=== PATIENT | female | born 1985 | race Caucasian/White ===

== ENCOUNTER → 2018-06-24 | Outpatient (CLI) | payer OTHER ==
[2018-06-24 18:27] LABS: PROTHROMBIN TIME 13.3 SECONDS (12.1-14.4)
[2018-06-24 18:28] LABS: PARTIAL THROMBOPLASTIN TIME 30.7 SECONDS (25.4-37.6)
[2018-06-28 00:07] LABS: ANCA-ATYPICAL <1:20 titer (Neg:<1:20); ANTI DOUBLE STRAND-DNA AB 10 IU/mL (0-9); ANTINUCLEAR ANTIBODIES DIRECT Positive (Negative); CYTOPLASMIC NEUTROP AB ANCA-C <1:20 titer (Neg:<1:20); PERINUCLEAR AB ANCA-P <1:20 titer (Neg:<1:20); RNP ANTIBODIES 0.2 AI (0.0-0.9); SJOGREN'S ANTI SS-A <0.2 AI (0.0-0.9); SJOGREN'S ANTI SS-B <0.2 AI (0.0-0.9); SMITH ANTIBODIES <0.2 AI (0.0-0.9)
[2018-06-29 16:40] LABS: ASPERGILLUS FLAVUS ABY Negative (Neg:<1:1); ASPERGILLUS FUMIGATUS ABY Negative (Neg:<1:1); ASPERGILLUS NIGER ABY Negative (Neg:<1:1); BLASTOMYCES ANTIBODY LEVEL Negative (Neg:<1:1); CRYPTOCOCCUS ANTIGEN SER Negative (Negative); CYCLIC CITRULLINATED PEPTIDE 7 units (0-19); HISTOPLASMOSIS ANTIBODY Negative (Neg:<1:1)
== END ==
LOC: M SMT 14:36
PROVIDERS: ATTEND Internal Medicine Pulmonary Disease
DX: R21 Rash and other nonspecific skin eruption (principal)

== ENCOUNTER → 2018-06-27 | Outpatient (CLI) | payer OTHER ==
--- NOTE | 2018-06-27 21:14 | REP ---
Clinical: Left wrist Trauma. Technique: AP, lateral, oblique views of the left wrist. Findings: The carpal bones, surrounding osseous structures, soft tissues, and joint spaces are normal. There is no evidence for acute fracture or dislocation. No subcutaneous emphysema or radiodense foreign body. Impression: Normal wrist series. No acute fracture or dislocation Electronically Signed by Deyvi Rodas MD 06/27/2018 09:05 P
--- NOTE | 2018-06-27 21:15 | REP ---
Clinical: Left wrist Trauma. Technique: AP, lateral, bilateral oblique views of the left hand . Findings: No acute fracture or dislocation. Skeletal structures, joint spaces, and surrounding soft tissues are normal. No subcutaneous emphysema or radiodense foreign body. Impression: No acute fracture or dislocation Electronically Signed by Deyvi Rodas MD 06/27/2018 09:06 P
== END ==
LOC: M RAD 20:28
PROVIDERS: ATTEND Physician Assistant Medical
DX: S69.92XA Unspecified injury of left wrist, hand and finger(s), initial encounter (principal); X58.XXXA Exposure to other specified factors, initial encounter; Y92.89 Other specified places as the place of occurrence of the external cause

== ENCOUNTER → 2018-07-02 | Outpatient (CLI) | payer OTHER ==
--- NOTE | 2018-07-02 14:04 | REP ---
Chest two views HISTORY: Cough Comparison: None Calcified granuloma are present in the right upper lobe and in the right and left jenn. The heart is normal in size. The pulmonary vasculature is normal in appearance. The bony structure is intact. IMPRESSION: No acute disease. Electronically Signed by Ilan Gregorio MD 07/02/2018 01:57 P
== END ==
LOC: M RAD 13:13
PROVIDERS: ATTEND Internal Medicine Pulmonary Disease
DX: R05 Cough (principal)

== ENCOUNTER 2018-07-15 20:45 | Emergency (ER) | payer OTHER ==
[~2018-07-15] VITALS: Ht 170.2 cm; Wt 105.0 kg
[2018-07-15] MEDS ORDERED: SYNT25TA PO (20:50)
[2018-07-15] MEDS ORDERED: VITA500045 PO (20:50)
[2018-07-15] MEDS ORDERED: ADVA115A INH (20:50)
[2018-07-15] MEDS ORDERED: ADDE10CA3 PO (20:50)
[2018-07-15] MEDS ORDERED: ACETAMINOPHEN 500 MG TAB PO ONE (23:00)
[2018-07-15 23:39] LABS: BASO # 0.1 10^3/uL (0.0-0.2); BASO % 1.2 % (0.0-1.0); EOS # 0.2 10^3/uL (0.0-0.50); EOS % 3.3 % (0.0-3.0); HEMOGLOBIN 12.8 g/dl (12.0-15.5); LYMPH # 1.8 10^3/uL (1.5-4.5); LYMPH % 27.5 % (24.0-44.0); MEAN CORPUSCULAR HEMOGLOBIN 27.2 pg (27.0-33.0); MEAN CORPUSCULAR VOLUME 85.1 fl (80.0-96.0); MONO # 0.3 10^3/uL (0.0-0.8); NEUTROPHILS # 4.2 10^3/uL (1.8-7.7); NEUTROPHILS % 62.8 % (36.0-66.0); PLATELET COUNT, AUTOMATED 245 10^3/uL (150-450); WHITE BLOOD COUNT 6.6 10^3/uL (4.0-10.0)
[2018-07-16 00:03] LABS: BLOOD UREA NITROGEN 11 MG/DL (7-18); CALCIUM LEVEL 9.1 MG/DL (8.5-10.1); CARBON DIOXIDE LEVEL 28 MEQ/L (21-32); CHLORIDE LEVEL 107 MEQ/L (98-107); CREATININE FOR GFR 0.83 MG/DL (0.55-1.30); GLOMERULAR FILTRATION RATE > 60.0 (>60); GLUCOSE, FASTING 91 MG/DL (70-100); SODIUM LEVEL 140 MEQ/L (136-145)
[2018-07-16 00:13] LABS: INFLUENZA A AMPLIFICATION NEGATIVE (NEGATIVE); INFLUENZA B AMPLIFICATION NEGATIVE (NEGATIVE)
[2018-07-16] MEDS ORDERED: ISOVUE-370 76% 100ML VIAL (Q9967) As Ordered ONE (00:13)
[2018-07-16] MEDS ORDERED: ONDANSETRON 4MG/2ML VIAL (J2405) IV ONE (00:15)
[2018-07-16] MEDS ORDERED: KETOROLAC 30 MG/ML VIAL (J1885) IV ONE (00:15)
[2018-07-16] MEDS ORDERED: guaiFENesin SYRUP 200 MG/10 ML UDC PO ONE (00:15)
--- NOTE | 2018-07-16 01:14 | REPVR ---
EXAM: CT Angiography Chest With Contrast EXAM DATE/TIME: 07/16/2018 12:08 AM CLINICAL HISTORY: 32 years old, female; Pain; Chest pain; Right-sided chest pain; Additional info: Right-sided chest pain, fever TECHNIQUE: Imaging protocol: Axial computed tomographic angiography images of the chest with intravenous contrast using CT angiography protocol. Coronal and sagittal reformatted images were created and reviewed. 3D rendering: MIP reconstructed images were created and reviewed. Radiation optimization: All CT scans at this facility use at least one of these dose optimization techniques: automated exposure control; mA and/or kV adjustment per patient size (includes targeted exams where dose is matched to clinical indication); or iterative reconstruction. Contrast material: iso Contrast volume: 75 ml Contrast route: ac COMPARISON: CR Chest, 2 view PA, Lat 07/15/2018 10:37 PM FINDINGS: Pulmonary arteries: Normal. No pulmonary emboli. Aorta: Normal. No aortic aneurysm. No aortic dissection. Lungs: No consolidation. No masses. Multiple calcified granulomas in the lungs. Pleural space: Normal. No pneumothorax. No pleural effusion. Heart: Normal. No cardiomegaly. No pericardial effusion. Spleen: Multiple calcified granulomas in the spleen. Lymph nodes: Multiple calcified mediastinal nodes. No lymphadenopathy. Bones/joints: Unremarkable. No acute fracture. Soft tissues: Unremarkable. IMPRESSION: 1. Negative for pulmonary embolism. 2. No acute findings. 3. Prior granulomatous disease. Electronically signed by: Miladys Rodriguez On 07/16/2018 01:14:00 AM
[2018-07-16] MEDS ORDERED: KETO10TAB PO (01:36)
[2018-07-16 01:52] VITALS: BP 109/61
--- NOTE | 2018-07-16 08:12 | REP ---
PA and lateral chest: Comparisons are 07/02/[address] of 07/16/2018. There are multiple small nodular densities throughout the lung loza bilaterally. The comparison CTs are calcified granulomas. They are unchanged from 07/02/2018. The lung loza otherwise clear. Cardiac size is normal. The jenn, mediastinum, skeletal structures are. Impression: No acute cardiopulmonary findings. Multiple small calcified granulomas bilaterally. Electronically Signed by Ahmet Camacho MD 07/16/2018 08:03 A
== END 2018-07-16 01:51 | disposition home or self-care (01) ==
LOC: M ED 20:45
DX: R07.89 Other chest pain (principal); E03.9 Hypothyroidism, unspecified
CPT/HCPCS: 71046; 71275; 80048; 85025; 85379; 87502; 96361; 96374; 96375; 99284; J1885; J2405; Q9967

== ENCOUNTER 2018-07-23 15:57 | Emergency (ER) | payer OTHER ==
[~2018-07-23] VITALS: Ht 170.2 cm; Wt 104.5 kg
[~2018-07-23 15:57] MED LIST: ADDE10CA3 PO; ADVA115A INH; KETO10TAB PO; SYNT25TA PO; VITA500045 PO
[2018-07-23] MEDS ORDERED: ADV250INH INH (16:07)
[2018-07-23] MEDS ORDERED: methylPREDNISolone INJ 125 MG/2 ML VIAL (J2930) IM ONE (17:45)
[2018-07-23] MEDS ORDERED: KETOROLAC 60 MG/2 ML VIAL (J1885) IM ONE (17:45)
[2018-07-23 18:02] LABS: INFLUENZA A AMPLIFICATION NEGATIVE (NEGATIVE); INFLUENZA B AMPLIFICATION NEGATIVE (NEGATIVE)
[2018-07-23 19:05] LABS: HEMATOCRIT 38.8 % (36.0-47.0); HEMOGLOBIN 12.7 g/dl (12.0-15.5); MEAN CORPUSCULAR HEMOGLOBIN 27.4 pg (27.0-33.0); MEAN CORPUSCULAR HGB CONC 32.7 g/dl (32.0-36.5); MEAN CORPUSCULAR VOLUME 83.6 fl (80.0-96.0); PLATELET COUNT, AUTOMATED 245 10^3/uL (150-450); RED BLOOD COUNT 4.64 10^6/uL (4.00-5.40); WHITE BLOOD COUNT 9.1 10^3/uL (4.0-10.0)
[2018-07-23 19:27] LABS: BLOOD UREA NITROGEN 8 MG/DL (7-18); CALCIUM LEVEL 8.8 MG/DL (8.5-10.1); CARBON DIOXIDE LEVEL 26 MEQ/L (21-32); CHLORIDE LEVEL 108 MEQ/L (98-107); CK-MB VALUE MASS < 1.0 NG/ML (<3.6); CPK CREATINE PHOSPHOKINASE 138 U/L (26-192); CREATININE FOR GFR 0.63 MG/DL (0.55-1.30); GLOMERULAR FILTRATION RATE > 60.0 (>60); GLUCOSE, FASTING 89 MG/DL (70-100); MB/CK RELATIVE INDEX 0.72 (< OR =4); SODIUM LEVEL 141 MEQ/L (136-145); TROPONIN I < 0.02 NG/ML (< 0.10)
[2018-07-23] MEDS ORDERED: FLUTISP (20:00)
[2018-07-23] MEDS ORDERED: PRED20TA PO (20:00)
[2018-07-23 20:08] VITALS: BP 118/60
--- NOTE | 2018-07-23 23:27 | ECGEPIP ---
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
--- NOTE | 2018-07-24 08:07 | REP ---
Chest x-ray: Two views. History: Shortness of breath. Comparison chest x-ray: July 15, 2018. Findings: There are granulomatous calcific residuals in the lungs bilaterally and in the left and right hilus unchanged. Mediastinal granulomatous lymph node calcifications are also noted unchanged. The lungs are well inflated and clear. Pleural angles are sharp. Heart size is normal. Pulmonary vasculature is not increased. Impression: Old granulomatous changes. No active disease. Electronically Signed by Jordan Miller MD 07/24/2018 09:13 A
== END 2018-07-23 20:22 | disposition home or self-care (01) ==
LOC: M ED 15:57
DX: J06.9 Acute upper respiratory infection, unspecified (principal); J45.909 Unspecified asthma, uncomplicated; E03.9 Hypothyroidism, unspecified; Z79.899 Other long term (current) drug therapy; Z79.890 Hormone replacement therapy; Z88.5 Allergy status to narcotic agent; Z88.7 Allergy status to serum and vaccine; Z88.8 Allergy status to other drugs, medicaments and biological substances
CPT/HCPCS: 36415; 71046; 80048; 82550; 82553; 84484; 85027; 87631; 93005; 96372; 99284; J1885; J2930

== ENCOUNTER → 2018-07-24 | Outpatient (CLI) | payer OTHER ==
[~2018-07-24] MED LIST changes: +ADV250INH INH; +BENZ200C70 PO; +FLUTISP; +PRED20TA PO
[2018-07-24 18:15] LABS: C REACTIVE PROTEIN QUANTITATIV 0.95 MG/DL (0.00-0.30)
== END ==
LOC: M SMT 14:14
PROVIDERS: ATTEND Internal Medicine Pulmonary Disease
DX: R09.1 Pleurisy (principal)

== ENCOUNTER 2018-07-26 11:20 | Emergency (ER) | payer OTHER ==
[~2018-07-26] VITALS: Ht 170.2 cm; Wt 104.5 kg
[~2018-07-26 11:20] MED LIST changes: -BENZ200C70 PO
[2018-07-26] MEDS ORDERED: PRED20TA PO (12:08)
[2018-07-26] MEDS ORDERED: ALBUTEROL SULFATE 2.5 MG/0.5 ML INH NEB SOLN INH ONE (12:45)
[2018-07-26] MEDS ORDERED: IPRATROPIUM 0.5MG/ALBUTEROL 2.5MG INH SOL UD 3ML (DUONEB)(J7620) NEB ONE (12:45)
[2018-07-26] MEDS ORDERED: BENZONATATE 100 MG CAP PO ONE (13:30)
[2018-07-26] MEDS ORDERED: BENZ200C70 PO (13:48)
[2018-07-26 14:06] VITALS: BP 122/62
--- NOTE | 2018-07-26 19:58 | ECGEPIP ---
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 Order Number: [id number] Reading MD: Makeda Osorio Measurements Intervals [place] Rate: 62 P: 40 WI: 126 QRS: 56 QRSD: 96 T: 45 QT: 393 QTc: 399 Interpretive Statements SINUS RHYTHM WITH SINUS ARRHYTHMIA POSSIBLE RIGHT VENTRICULAR CONDUCTION DELAY SIMILAR 07/23/18 Electronically Signed On 07-26-2018 19:58:29 EDT by Makeda Osorio
== END 2018-07-26 14:28 | disposition home or self-care (01) ==
LOC: M ED 11:20
DX: J06.9 Acute upper respiratory infection, unspecified (principal); J45.909 Unspecified asthma, uncomplicated; Z79.899 Other long term (current) drug therapy; Z88.5 Allergy status to narcotic agent; Z88.8 Allergy status to other drugs, medicaments and biological substances; Z88.7 Allergy status to serum and vaccine

== ENCOUNTER 2018-07-30 12:09 | Emergency (ER) | payer OTHER ==
[~2018-07-30] VITALS: Ht 170.2 cm; Wt 104.5 kg
[~2018-07-30 12:09] MED LIST changes: +BENZ200C70 PO
[2018-07-30] MEDS ORDERED: ALBU83IN NEB (12:23)
[2018-07-30] MEDS ORDERED: IBUP1TAB7 PO (12:23)
[2018-07-30] MEDS ORDERED: NS 1,000 ML IV ONE ×2 (12:45→13:00)
[2018-07-30 13:34] LABS: VENOUS BASE EXCESS 0.5 (-2.0-2.0); VENOUS HCO3 25.2 MEQ/L (23.0-27.0); VENOUS O2 SATURATION 91.7 % (60.0-80.0); VENOUS PARTIAL PRESSURE CO2 40.9 mmHg (38.0-50.0); VENOUS PARTIAL PRESSURE O2 63.3 mmHg (30.0-50.0); VENOUS PH 7.408 UNITS (7.330-7.430); VENOUS STANDARD HCO3 24.8 MEQ/L; VENOUS TOTAL CO2 26.5 MEQ/L (24.0-28.0)
[2018-07-30 13:42] LABS: BASO # 0.1 10^3/uL (0.0-0.2); BASO % 0.4 % (0.0-1.0); EOS % 0.1 % (0.0-3.0); HEMATOCRIT 41.3 % (36.0-47.0); HEMOGLOBIN 13.5 g/dl (12.0-15.5); LYMPH # 0.9 10^3/uL (1.5-4.5); LYMPH % 7.2 % (24.0-44.0); MEAN CORPUSCULAR HEMOGLOBIN 27.6 pg (27.0-33.0); MEAN CORPUSCULAR HGB CONC 32.7 g/dl (32.0-36.5); MEAN CORPUSCULAR VOLUME 84.3 fl (80.0-96.0); MONO # 0.2 10^3/uL (0.0-0.8); MONO % 1.3 % (0.0-5.0); NEUTROPHILS # 11.8 10^3/uL (1.8-7.7); NEUTROPHILS % 90.6 % (36.0-66.0); PLATELET COUNT, AUTOMATED 262 10^3/uL (150-450)
[2018-07-30] MEDS ORDERED: ONDANSETRON 4MG/2ML VIAL (J2405) IV ONE (13:45)
[2018-07-30] MEDS ORDERED: ACETAMINOPHEN TAB 650MG DOSE (2X325MG) PO ONE (13:45)
[2018-07-30 13:53] LABS: AMPHETAMINES LEVEL URINE NEGATIVE (NEGATIVE); BARBITURATES URINE NEGATIVE (NEGATIVE); BENZODIAZEPINES URINE NEGATIVE (NEGATIVE); CANNABINOIDS URINE NEGATIVE (NEGATIVE); COCAINE METABOLITE URINE NEGATIVE (NEGATIVE); METHADONE URINE NEGATIVE (NEGATIVE); OPIATES URINE NEGATIVE (NEGATIVE); PHENCYCLIDINE URINE NEGATIVE (NEGATIVE)
[2018-07-30 13:55] LABS: INR 0.93; PARTIAL THROMBOPLASTIN TIME 22.8 SECONDS (25.4-37.6); PROTHROMBIN TIME 12.6 SECONDS (12.1-14.4)
[2018-07-30 14:10] LABS: BLOOD UREA NITROGEN 20 MG/DL (7-18); CALCIUM LEVEL 9.5 MG/DL (8.5-10.1); CARBON DIOXIDE LEVEL 27 MEQ/L (21-32); CHLORIDE LEVEL 106 MEQ/L (98-107); CK-MB VALUE MASS < 1.0 NG/ML (<3.6); CPK CREATINE PHOSPHOKINASE 53 U/L (26-192); CREATININE FOR GFR 0.88 MG/DL (0.55-1.30); ETHYL ALCOHOL (ETHANOL) < 0.003 % (0.000-0.010); GLOMERULAR FILTRATION RATE > 60.0 (>60); GLUCOSE, FASTING 113 MG/DL (70-100); MB/CK RELATIVE INDEX 1.89 (< OR =4); POTASSIUM SERUM 4.6 MEQ/L (3.5-5.1); SODIUM LEVEL 139 MEQ/L (136-145); TROPONIN I < 0.02 NG/ML (< 0.10)
[2018-07-30 14:12] LABS: HCG, SERUM QUALITATIVE NEGATIVE (NEGATIVE)
[2018-07-30 14:17] LABS: INFLUENZA A AMPLIFICATION NEGATIVE (NEGATIVE); INFLUENZA B AMPLIFICATION NEGATIVE (NEGATIVE)
[2018-07-30] MEDS ORDERED: ISOVUE-370 76% 100ML VIAL (Q9967) As Ordered ONE (14:29)
--- NOTE | 2018-07-30 14:51 | REP ---
CT Head without contrast HISTORY: Syncope COMPARISON: None There is no intraparenchymal hemorrhage, acute infarct, mass or midline shift. The ventricular system is normal in appearance. There is no extra cerebral collection. There is no fracture. The visualized sinuses are clear. IMPRESSION: There is no intracranial lesion. Electronically Signed by Ilan Gregorio MD 07/30/2018 02:42 P
--- NOTE | 2018-07-30 14:54 | REP ---
CT cervical spine without contrast HISTORY: Syncope COMPARISON: None There is no acute fracture or subluxation. There is no disc bulge or herniation. The spinal canal and neural foramina are patent. The intervertebral discs and vertebral bodies are normal in height. IMPRESSION: There is no acute fracture or subluxation. Electronically Signed by Ilan Gregorio MD 07/30/2018 02:45 P
--- NOTE | 2018-07-30 15:12 | REP ---
CT ANGIOGRAM OF THE CHEST: TECHNIQUE: Axial contrast enhanced images from the thoracic inlet to the upper abdomen using 100 mL Isovue 370 intravenous contrast material with multiplanar reformations. There is no CT evidence of pulmonary embolism. There is no thoracic aortic aneurysm or dissection. There is no mediastinal, hilar or chest wall lymphadenopathy. Calcified hilar and mediastinal lymph nodes are present and there are several scattered parenchymal calcified granulomas bilaterally indicating prior granulomatous disease. The heart is normal in size. There is no pleural or pericardial effusion. A few tiny calcified granulomas are seen in the liver and spleen. IMPRESSION: No CT evidence of pulmonary embolism or aortic dissection. There is evidence of prior granulomatous disease with multiple calcified lymph nodes and calcified granulomas identified. Electronically Signed by Ahmet Myers MD 07/31/2018 04:44 P
--- NOTE | 2018-07-30 15:14 | REP ---
CHEST, SINGLE VIEW: Single view of the chest is performed. There is no acute infiltrate or pulmonary edema. The heart is normal in size. There are calcified hilar lymph nodes and there are scattered tiny calcified granulomas in both lungs. IMPRESSION: No acute infiltrate. Electronically Signed by Ahmet Myers MD 07/31/2018 04:44 P
[2018-07-30] MEDS ORDERED: BENZONATATE 100 MG CAP PO ONE (15:45)
[2018-07-30] MEDS ORDERED: KETOROLAC 30 MG/ML VIAL (J1885) IV ONE (16:00)
[2018-07-30] MEDS ORDERED: HALOPERIDOL 5 MG/ML VIAL (J1630) IV ONE (17:00)
--- NOTE | 2018-07-30 19:05 | REP ---
MRI BRAIN: Multiple sequences obtained in the axial and sagittal planes without the use of intravenous contrast. The ventricles are normal in size and position. There is no midline shift or mass effect. Myers/white differentiation is well maintained. No abnormal signal is seen in the brain, brainstem or cerebellum. The VII/VIII cranial nerve complexes appear unremarkable. No abnormal signal is seen on the diffusion weighted images or ADC images with no acute infarct. Visualized paranasal sinuses demonstrate no abnormal signal. The globes are intact. IMPRESSION: Negative MRI brain. Electronically Signed by Ahmet Myers MD 07/31/2018 04:51 P
[2018-07-30] MEDS ORDERED: ONDA4TAB6 PO (19:31)
[2018-07-30 20:04] VITALS: BP 100/50
--- NOTE | 2018-07-31 05:50 | ECGEPIP ---
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
== END 2018-07-30 20:06 | disposition home or self-care (01) ==
LOC: M ED 12:09 → EDBD 12:09 → M ED 20:06
DX: I95.1 Orthostatic hypotension (principal); R51 Headache; R05 Cough; M25.552 Pain in left hip; J45.909 Unspecified asthma, uncomplicated; Z88.8 Allergy status to other drugs, medicaments and biological substances; Z88.5 Allergy status to narcotic agent; Z88.7 Allergy status to serum and vaccine; Z79.899 Other long term (current) drug therapy; Z79.51 Long term (current) use of inhaled steroids; Z79.52 Long term (current) use of systemic steroids
CPT/HCPCS: 70450; 70551; 71045; 71275; 72125; 80048; 80307; 81001; 82550; 82553; 82803; 84443; 84484; 84703; 85025; 85610; 85730; 87502; 93005; 93041; 96361; 96374; 96375; 99285; G0480; J1630; J1885; J2405; Q9967

== ENCOUNTER 2018-08-01 18:59 | Emergency (ER) | payer OTHER ==
[~2018-08-01] VITALS: Ht 170.2 cm; Wt 106.8 kg
[~2018-08-01 18:59] MED LIST changes: +ALBU83IN NEB; +IBUP1TAB7 PO; +ONDA4TAB6 PO
[2018-08-01] MEDS ORDERED: KETOROLAC 30 MG/ML VIAL (J1885) IV ONE (19:45)
[2018-08-01] MEDS ORDERED: METOCLOPRAMIDE INJ 10MG/2ML VIAL (J2765) IV ONE (19:45)
[2018-08-01] MEDS ORDERED: NS 1,000 ML IV ONE (19:45)
[2018-08-01] MEDS ORDERED: diphenhydrAMINE INJ 50MG/ML VIAL (J1200) IV ONE (19:45)
[2018-08-01 20:00] LABS: BASO % 0.3 % (0.0-1.0); EOS % 0.1 % (0.0-3.0); HEMATOCRIT 40.3 % (36.0-47.0); LYMPH # 2.4 10^3/uL (1.5-4.5); LYMPH % 20.7 % (24.0-44.0); MEAN CORPUSCULAR HEMOGLOBIN 27.7 pg (27.0-33.0); MEAN CORPUSCULAR HGB CONC 32.3 g/dl (32.0-36.5); MEAN CORPUSCULAR VOLUME 85.9 fl (80.0-96.0); MONO # 0.6 10^3/uL (0.0-0.8); MONO % 5.5 % (0.0-5.0); NEUTROPHILS # 8.4 10^3/uL (1.8-7.7); NEUTROPHILS % 73.1 % (36.0-66.0); PLATELET COUNT, AUTOMATED 270 10^3/uL (150-450); RED BLOOD COUNT 4.69 10^6/uL (4.00-5.40); WHITE BLOOD COUNT 11.5 10^3/uL (4.0-10.0)
[2018-08-01 20:26] LABS: BLOOD UREA NITROGEN 10 MG/DL (7-18); CALCIUM LEVEL 8.9 MG/DL (8.5-10.1); CARBON DIOXIDE LEVEL 30 MEQ/L (21-32); CHLORIDE LEVEL 106 MEQ/L (98-107); CREATININE FOR GFR 0.76 MG/DL (0.55-1.30); GLOMERULAR FILTRATION RATE > 60.0 (>60); GLUCOSE, FASTING 78 MG/DL (70-100); POTASSIUM SERUM 3.9 MEQ/L (3.5-5.1); SODIUM LEVEL 140 MEQ/L (136-145)
[2018-08-01 21:21] VITALS: BP 121/71
== END 2018-08-01 21:22 | disposition home or self-care (01) ==
LOC: M ED 18:59
DX: R51 Headache (principal); J45.909 Unspecified asthma, uncomplicated; M32.9 Systemic lupus erythematosus, unspecified; E03.9 Hypothyroidism, unspecified; D64.9 Anemia, unspecified; F90.9 Attention-deficit hyperactivity disorder, unspecified type; Z79.899 Other long term (current) drug therapy; Z79.890 Hormone replacement therapy; Z88.5 Allergy status to narcotic agent; Z88.7 Allergy status to serum and vaccine; Z88.8 Allergy status to other drugs, medicaments and biological substances
CPT/HCPCS: 80048; 85025; 96361; 96374; 96375; 99284; J1200; J1885; J2765

== ENCOUNTER 2018-08-03 13:33 | Emergency (ER) | payer OTHER ==
[~2018-08-03] VITALS: Ht 170.2 cm; Wt 108.3 kg
[2018-08-03 15:25] VITALS: BP 126/68
== END 2018-08-03 15:30 | disposition home or self-care (01) ==
LOC: M ED 13:33
DX: M32.9 Systemic lupus erythematosus, unspecified (principal); R55 Syncope and collapse; F90.9 Attention-deficit hyperactivity disorder, unspecified type; J45.909 Unspecified asthma, uncomplicated; E03.9 Hypothyroidism, unspecified; D64.9 Anemia, unspecified; Z79.899 Other long term (current) drug therapy; Z88.5 Allergy status to narcotic agent; Z88.7 Allergy status to serum and vaccine; Z88.8 Allergy status to other drugs, medicaments and biological substances